=== PATIENT | male | born 1970 | race Caucasian/White ===

== ENCOUNTER 2022-03-16 20:21 | Emergency (ER) | payer BC ==
[2022-03-16] MEDS ORDERED: Cephalexin 500 MG Cap PO ONE (22:45)
== END 2022-03-16 22:55 ==
LOC: MW.ED 20:21
DX: L03.116 Cellulitis of left lower limb (principal); I10 Essential (primary) hypertension; E78.9 Disorder of lipoprotein metabolism, unspecified; Z79.899 Other long term (current) drug therapy; Z79.84 Long term (current) use of oral hypoglycemic drugs
CPT/HCPCS: 99283; A9270

== ENCOUNTER 2023-12-13 10:42 | Emergency (ER) | payer OTHER ==
[2023-12-13 12:10] LABS: BASOPHILS ABSOLUTE AUTO 0.04 K/uL (0.00-0.20); BASOPHILS PERCENT AUTO 0.5 % (0.0-1.0); EOSINOPHILS ABSOLUTE AUTO 0.02 K/uL (0.00-0.45); EOSINOPHILS PERCENT AUTO 0.2 % (0.0-6.0); HEMATOCRIT 52.2 % (42.0-52.0); HEMOGLOBIN 18.2 g/dL (14.0-18.0); IMMATURE GRAN ABSOLUTE AUTO 0.02 K/uL (0.00-0.05); IMMATURE GRAN PERCENT AUTO 0.2 % (0.0-0.4); LYMPHOCYTES PERCENT AUTO 16.4 % (24.0-44.0); MEAN CORPUSCULAR HEMOGLOBIN 30.6 pg (28.0-32.0); MEAN CORPUSCULAR HGB CONC 34.9 g/dL (32.0-36.0); MEAN CORPUSCULAR VOLUME 87.7 fL (83.0-99.0); MEAN PLATELET VOLUME 9.8 fL (9.4-12.4); MONOCYTES ABSOLUTE AUTO 0.69 K/uL (0.00-0.80); MONOCYTES PERCENT AUTO 8.1 % (0.0-8.0); NEUTROPHILS ABSOLUTE AUTO 6.36 K/uL (1.80-7.70); NEUTROPHILS PERCENT AUTO 74.6 % (41.0-71.0); PLATELET COUNT,PLT 263 K/uL (150-400); RED BLOOD CELL COUNT 5.95 M/uL (4.52-5.90); WHITE BLOOD CELL COUNT,WBC 8.53 K/uL (3.9-11.3)
[2023-12-13] MEDS: Ondansetron 4 MG/2 ML SDV IVPUSH STA (12:21)
[2023-12-13] MEDS: Sodium Chloride 0.9% 1,000 ML IV STA (12:21)
[2023-12-13 12:26] LABS: A/G RATIO 1.6 (0.9-1.6); ALBUMIN 5.1 g/dL (3.4-5.0); BILIRUBIN TOTAL 1.4 mg/dL (0.2-1.0); CALCIUM 10.3 mg/dL (8.5-10.1); CARBON DIOXIDE,CO2 25.6 mmol/L (21.0-32.0); CREATININE 1.2 mg/dL (0.8-1.3); EST CRCL DRUG DOSING (CG) 71.82 mL/min; POTASSIUM,K 4.3 mmol/L (3.5-5.1); PROTEIN TOTAL,TP 8.3 g/dL (6.4-8.2)
== END 2023-12-13 13:10 | disposition home or self-care (01) ==
LOC: MW.ED 10:42
DX: E86.0 Dehydration (principal); R11.2 Nausea with vomiting, unspecified; I10 Essential (primary) hypertension; E78.00 Pure hypercholesterolemia, unspecified; E11.9 Type 2 diabetes mellitus without complications; Z75.8 Other problems related to medical facilities and other health care; Z79.899 Other long term (current) drug therapy; Z79.84 Long term (current) use of oral hypoglycemic drugs
CPT/HCPCS: 36415; 80053; 83690; 83735; 85025; 96361; 96374; 99284; J2405; J7030; 99283